=== PATIENT | male | born 1950 | race Caucasian/White ===

== ENCOUNTER 2017-08-14 16:13 | Emergency (ER) | payer MEDICARE ==
[~2017-08-14] VITALS: Ht 180.3 cm; Wt 68.2 kg
[2017-08-14 16:17] VITALS: Ht 180.3 cm; Wt 68.2 kg
[2017-08-14] MEDS ORDERED: ARICEPT10 MG PO (16:20)
[2017-08-14 18:48] VITALS: BP 125/80
[2017-08-24 14:13] VITALS: Ht 180.3 cm; Wt 68.2 kg
== END 2017-08-14 17:10 | disposition other institution (70) ==
LOC: D.ER 16:13
DX: F03.90 Unspecified dementia, unspecified severity, without behavioral disturbance, psychotic disturbance, mood disturbance, and anxiety (principal); M19.011 Primary osteoarthritis, right shoulder; M25.511 Pain in right shoulder

== ENCOUNTER 2017-08-23 13:45 | Inpatient (IN) | payer MEDICARE ==
[~2017-08-23] VITALS: Ht 177.8 cm; Wt 69.5 kg
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
--- NOTE | ~2017-08-23 | PN ---
PATIENT:ASHLEY CHANDLER MEDICAL RECORD: [id number] LOCATION:TASHA Emmanuel112 ADMISSION DATE: 08/23/17 PROGRESS NOTE DATE OF SERVICE: 09/01/2017 SUBJECTIVE: The patient's case was discussed with staff. He has no new complaint. OBJECTIVE: The patient is in good behavioral control with limited insight about his condition. He tolerates his medicines well. ASSESSMENT: No change in diagnoses. PLAN: Supportive and educational interventions were made. Retirement prognosis is guarded. I anticipate the patient can be transitioned out of the hospital soon if this level of improvement is maintained. TRANSINT:[id number] Voice Confirmation ID: [id number] DOCUMENT ID: [id number] JOHN SMITH MD at 0949 CC: [id number] DICTATION DATE: 09/01/17 1221 METAL PATTERNMAKER: 09/01/17 1227 ADM IN [place] [place] [address]
--- NOTE | ~2017-08-23 | PN ---
PATIENT:ASHLEY CHANDLER MEDICAL RECORD: [id number] LOCATION:TASHA FreedmanJovanyLc ADMISSION DATE: 08/23/17 PROGRESS NOTE DATE OF SERVICE: 08/25/2017 SUBJECTIVE: The patient's case was discussed with staff. He has no new complaint. OBJECTIVE: The patient is extremely confused. He is wandering and becomes a little agitated when redirected, but not in a severe way. He is not eating very well. ASSESSMENT: No change in diagnoses. PLAN: The patient will be taken off of Ritalin, since I am concerned about its appetite suppressing effects, especially in someone who is in the end stages of dementia. I also anticipate further tapering him off of Ambien. He may well require some Megace to assist with appetite stimulation and it is clear he needs 93-gjdr-r-day testing. I had ordered neuropsychological testing, but he was too advanced to even be tested by Dr. Bridges. TRANSINT:[id number] Voice Confirmation ID: [id number] DOCUMENT ID: [id number] JOHN SMITH MD at 0956 CC: [id number] DICTATION DATE: 08/25/17 1324 JUNIOR ANALYST: 08/25/17 1339 ADM IN [facility] [address] [place] [address]
--- NOTE | ~2017-08-23 | PN ---
PATIENT:ASHLEY CHANDLER MEDICAL RECORD: [id number] LOCATION:MARCUSLorraine Emmanuel112 ADMISSION DATE: 08/23/17 PROGRESS NOTE DATE OF SERVICE: 09/06/2017 SUBJECTIVE: The patient's case was discussed with staff. He has no new complaint. OBJECTIVE: The patient is in good behavioral control with limited insight about his condition. He tolerates his medicines well. ASSESSMENT: No change in diagnosis. PLAN: Current medicines have been reviewed and will be maintained. Long-term prognosis is guarded. The patient is going to be transitioned out of the hospital into the [facility] tomorrow morning. Follow up will be with the [facility] physician. TRANSINT:[id number] Voice Confirmation ID: [id number] DOCUMENT ID: [id number] JOHN SMITH MD at 1438 CC: [id number] DICTATION DATE: 09/06/17 1356 TRANSPORTATION PROGRAM DIRECTOR: 09/06/17 1415 DIS IN 09/07/17 [address] [place] [address]
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
--- NOTE | ~2017-08-23 | PN ---
PATIENT:ASHLEY CHANDLER MEDICAL RECORD: [id number] LOCATION:TASHA Emmanuel112 ADMISSION DATE: 08/23/17 PROGRESS NOTE DATE OF SERVICE: 08/24/2017 SUBJECTIVE: The patient's case was discussed with staff. He has no new complaint. OBJECTIVE: The patient denies intent to harm himself or others. He is very disorganized. He required p.r.n. medication last night because of some agitation, but he has no recollection of this event. ASSESSMENT: No change in diagnoses. PLAN: The patient will be maintained on current medicines, which I have reviewed. I am going to reduce the dose of the Ritalin to half of what it currently is and anticipate that I will just discontinue it altogether in the next day or two. TRANSINT:[id number] Voice Confirmation ID: [id number] DOCUMENT ID: [id number] JOHN SMITH MD at 1312 CC: [id number] DICTATION DATE: 08/24/17 1400 SERVICE CAR OPERATOR: 08/24/17 1509 ADM IN [id number] [place] [address]
--- NOTE | ~2017-08-23 | PN ---
PATIENT:ASHLEY CHANDLER MEDICAL RECORD: [id number] LOCATION:MARCUSLorraine EmmanuelLc ADMISSION DATE: 08/23/17 PROGRESS NOTE DATE OF SERVICE: 09/04/2017 SUBJECTIVE: The patient's case was discussed with staff. He has no new complaint. OBJECTIVE: The patient is in good behavioral control with limited insight about his condition. He has severe memory impairment. He was agitated last night. ASSESSMENT: No change in diagnoses. PLAN: Supportive and educational interventions were made. The patient will be given a higher dose of trazodone to assist with sleep consolidation. His long-term prognosis is guarded. TRANSINT:[id number] Voice Confirmation ID: [id number] DOCUMENT ID: [id number] JOHN SMITH MD at 1452 CC: [id number] DICTATION DATE: 09/04/17 1454 LUGGER: 09/04/17 1533 ADM IN [place] [id number] [place] [id number]
--- NOTE | ~2017-08-23 | PN ---
PATIENT:ASHLEY CHANDLER MEDICAL RECORD: [id number] LOCATION:TASHA EmmanuelLc ADMISSION DATE: 08/23/17 PROGRESS NOTE DATE OF SERVICE: 08/30/2017 SUBJECTIVE: The patient's case was discussed with staff. He has no new complaint. OBJECTIVE: The patient has been in good behavioral control with no thoughts of harming himself or others. He generally tolerates his medicines well. He did not sleep well last night but has no complaint about this. He does not look sleepy today. I will increase his trazodone to 50 mg at bedtime. TRANSINT:[id number] Voice Confirmation ID: [id number] DOCUMENT ID: [id number] JOHN SMITH MD at 1224 CC: [id number] DICTATION DATE: 08/30/17 1043 SHAREPOINT NET DEVELOPER: 08/30/17 1139 ADM IN [facility] [address] [place] [address]
--- NOTE | ~2017-08-23 | PN ---
PATIENT:ASHLEY CHANDLER MEDICAL RECORD: [id number] LOCATION:TASHA Emmanuel112 ADMISSION DATE: 08/23/17 PROGRESS NOTE DATE OF SERVICE: 08/31/2017 SUBJECTIVE: The patient's case was discussed with staff. He has no new complaint. OBJECTIVE: The patient was agitated and aggressive with staff last night. He did require p.r.n. medication because of this. Today, he has no recollection of the event. He is calm and cooperative today, but severely impaired cognitively. ASSESSMENT: No change in diagnoses. PLAN: Supportive and educational interventions were made. Long-term prognosis is guarded. TRANSINT:[id number] Voice Confirmation ID: [id number] DOCUMENT ID: [id number] JOHN SMITH MD at 1212 CC: [id number] DICTATION DATE: 08/31/17 1235 CLASSICS TEACHER: 08/31/17 1247 ADM IN [facility] [address] [place] [address]
--- NOTE | ~2017-08-23 | PN ---
PATIENT:ASHLEY CHANDLER MEDICAL RECORD: [id number] LOCATION:TASHA Emmanuel112 ADMISSION DATE: 08/23/17 PROGRESS NOTE DATE OF SERVICE: 08/26/2017 SUBJECTIVE: The patient's case was discussed with staff. He has no new complaint. OBJECTIVE: The patient did require some p.r.n. medication last evening because of some agitation. He is a little sleepy today. He is severely impaired cognitively and clearly is going to require 53-gqdh-l-day supervision. He has had no hallucinations today. ASSESSMENT: No change in diagnoses. PLAN: Supportive and educational interventions were made. Fpc prognosis is guarded. TRANSINT:[id number] Voice Confirmation ID: [id number] DOCUMENT ID: [id number] JOHN SMITH MD at 1417 CC: [id number] DICTATION DATE: 08/26/17 1017 FEED PROJECT ENGINEER: 08/26/17 1217 ADM IN [place] [place] [address]
--- NOTE | ~2017-08-23 | PN ---
PATIENT:ASHLEY CHANDLER MEDICAL RECORD: [id number] LOCATION:TASHA Emmanuel112 ADMISSION DATE: 08/23/17 PROGRESS NOTE DATE OF SERVICE: 08/29/2017 SUBJECTIVE: The patient's case was discussed with staff. He has no new complaint. OBJECTIVE: The patient is in good behavioral control with limited insight about his condition. He does tolerate his medicines well. He is severely impaired cognitively, but is responding reasonably well to the structured environment with regular and predictable schedule. ASSESSMENT: No change in diagnoses. PLAN: This patient's condition is advanced. Given his relative youth and the severity of his dementia, it is not a very optimistic prognosis. I suspect that within a year, he will not recognize family members and probably will not even know his own name. His has decided to seek placement at the [facility] instead of assisted living and I am supportive of this decision. TRANSINT:[id number] Voice Confirmation ID: [id number] DOCUMENT ID: [id number] JOHN SMITH MD at 1037 CC: [id number] DICTATION DATE: 08/29/17 1507 MEASUREMENT ADVISOR: 08/29/17 1524 ADM IN [facility] [address] [place] [address]
--- NOTE | ~2017-08-23 | PN ---
PATIENT:ASHLEY CHANDLER MEDICAL RECORD: [id number] LOCATION:TASHA Emmanuel112 ADMISSION DATE: 08/23/17 PROGRESS NOTE DATE OF SERVICE: 09/05/2017 SUBJECTIVE: The patient's case was discussed with staff. He has no new complaint. OBJECTIVE: The patient denies intent to harm himself or others. He generally tolerates his medicines well. Eye contact is fair. ASSESSMENT: No change in diagnoses. PLAN: Current medicines have been reviewed and will be maintained. Long-term prognosis is guarded. TRANSINT:[id number] Voice Confirmation ID: [id number] DOCUMENT ID: [id number] JOHN SMITH MD at 1339 CC: [id number] DICTATION DATE: 09/05/17 1500 WIRE SAW OPERATOR: 09/05/17 1508 ADM IN [place] [address] [place] [address]
--- NOTE | ~2017-08-23 | PN ---
PATIENT:ASHLEY CHANDLER MEDICAL RECORD: [id number] LOCATION:MARCUSLorraine Emmanuel112 ADMISSION DATE: 08/23/17 PROGRESS NOTE DATE OF SERVICE: 09/02/2017 SUBJECTIVE: The patient's case was discussed with staff. He has no new complaint. OBJECTIVE: The patient is sleeping and eating well. He is quite confused, but has not been agitated or aggressive. ASSESSMENT: No change in diagnoses. PLAN: I anticipate the patient can be transitioned out of the hospital soon if this level of improvement is maintained. His long-term prognosis is guarded. TRANSINT:[id number] Voice Confirmation ID: [id number] DOCUMENT ID: [id number] JOHN SMITH MD at 1445 CC: [id number] DICTATION DATE: 09/02/17 0955 PLUG SORTER: 09/02/17 1055 ADM IN [place] [place] [address]
--- NOTE | ~2017-08-23 | PN ---
PATIENT:ASHLEY CHANDLER MEDICAL RECORD: [id number] LOCATION:MARCUSLorraine EmmanuelLc ADMISSION DATE: 08/23/17 PROGRESS NOTE DATE OF SERVICE: 08/28/2017 SUBJECTIVE: The patient's case was discussed with staff. He has no new complaint. OBJECTIVE: The patient has not been aggressive, but he is severely impaired cognitively. He is not sleeping well. He picks at the air as though there is something there, but when asked about it, he cannot answer what he is doing. He has been urinating in the floor, I presume thinking he was in the bathroom. ASSESSMENT: No change in diagnoses. PLAN: The patient will be treated with a low dose of Trilafon to assist with his thought disorganization. He will be monitored for clinical changes associated with its use. His long-term prognosis is guarded. TRANSINT:[id number] Voice Confirmation ID: [id number] DOCUMENT ID: [id number] JOHN SMITH MD at 1456 CC: [id number] DICTATION DATE: 08/28/17 1429 REPAIRER GENERAL: 08/28/17 1507 ADM IN [place] [place] [address]
[~2017-08-23 13:45] MED LIST: ARICEPT10 MG PO
[2017-08-23] MEDS ORDERED: NAMENDA10 MG PO (14:33)
[2017-08-23] MEDS ORDERED: RITALIN10 MG PO (14:33)
[2017-08-23] MEDS ORDERED: AMBIEN10 MG PO (14:34)
[2017-08-23] MEDS ORDERED: FLOMAX0.4 MG PO (14:34)
[2017-08-23 15:18] LABS: BASOPHILS 0.1 % (0-2); EOSINOPHILS 0.5 % (0-7); HEMATOCRIT 45.6 % (42.0-54.0); IMMATURE GRANULOCYTES 0.1 % (0-5); LYMPHOCYTES 12.9 % (15-50); MCH 30.1 pg (26.0-34.0); MCHC 35.1 g/dL (31.0-37.0); MCV 85.9 fL (80.0-100.0); MEAN PLATELET VOLUME 9.5 fL (7.4-10.4); MONOCYTES 9.4 % (2-11); PLATELET COUNT 215 10x3/uL (130-400); RBC 5.31 10x6/uL (4.20-6.10); RDW 12.7 % (11.5-14.5); WBC 7.5 10x3/uL (4.8-10.8)
[2017-08-23 15:40] LABS: ALBUMIN 3.9 g/dL (3.4-5.0); ANION GAP 7.9 mmol/L (8-16); BILIRUBIN - TOTAL 1.03 mg/dL (0.2-1.3); CALCIUM 9.2 mg/dL (8.5-10.1); CARBON DIOXIDE 32.2 mmol/L (21.0-32.0); CHOL - HDL RATIO 2.9 ratio (2.3-4.9); CREATININE - SERUM 1.2 mg/dL (0.6-1.3); LDL-HDL RATIO 1.7 ratio (1.5-3.5); POTASSIUM - SERUM 4.1 mmol/L (3.5-5.1); PROTEIN - SERUM 7.1 g/dL (6.4-8.2); THYROID STIMULATING HORMONE 0.77 uIU/mL (0.36-3.74)
[2017-08-23 18:30] LABS: APPEARANCE CLEAR (CLEAR); BILIRUBIN NEGATIVE (NEGATIVE); COLOR YELLOW (YELLOW); GLUCOSE NEGATIVE (NEGATIVE); KETONE NEGATIVE (NEGATIVE); NITRITE NEGATIVE (NEGATIVE); PROTEIN NEGATIVE (NEGATIVE); SPECIFIC GRAVITY 1.025 (1.005-1.020); UROBILINOGEN NORMAL (NORMAL)
[2017-08-23 19:51] VITALS: BP 124/81
[2017-08-24 02:58] VITALS: BP 104/60; BMI 22.0
[2017-08-24 06:15] LABS: RAPID PLASMA REAGIN Non Reactive (Non Reactive)
[2017-08-24 09:18] LABS: FOLATE (FOLIC ACID) - SERUM 14.2 ng/mL (>3.0)
[2017-08-24 10:20] LABS: VITAMIN D 25 HYDROXY 24.4 ng/mL (30.0-100.0)
[2017-08-24 10:30] VITALS: BP 106/86
[2017-08-24 13:13] VITALS: BMI 21.9
[2017-08-24 14:13] VITALS: Ht 177.8 cm; Wt 69.5 kg
[2017-08-24 20:07] VITALS: BP 127/83
[2017-08-25 09:18] VITALS: BP 137/35
[2017-08-25 09:38] VITALS: BP 137/85
[2017-08-25 19:43] VITALS: BP 133/92
[2017-08-26 10:42] VITALS: BP 120/69
[2017-08-26 20:16] VITALS: BP 136/74
[2017-08-27 08:27] VITALS: BP 127/85
[2017-08-27 19:26] VITALS: BP 108/79
[2017-08-28 07:00] VITALS: BP 132/79
[2017-08-28 19:56] VITALS: BP 115/74
[2017-08-29 07:56] VITALS: BP 100/68
[2017-08-29 19:55] VITALS: BP 126/61
[2017-08-30 09:28] VITALS: BP 105/52
[2017-08-30 19:33] VITALS: BP 126/76
[2017-08-31 08:30] VITALS: BP 111/73
[2017-09-01 08:30] VITALS: BP 119/74
[2017-09-01 20:02] VITALS: BP 108/70
[2017-09-02 08:16] VITALS: BP 91/59
[2017-09-02 10:19] VITALS: BP 91/59
[2017-09-02 19:58] VITALS: BP 150/84
[2017-09-03 07:00] VITALS: BP 107/74
[2017-09-03 20:26] VITALS: BP 147/90
[2017-09-04 07:00] VITALS: BP 122/72
[2017-09-04 19:58] VITALS: BP 110/70
[2017-09-05 10:03] VITALS: BP 104/73
[2017-09-06 08:00] VITALS: BP 104/73
[2017-09-06] MEDS ORDERED: ARICEPT10 MG PO (13:54)
[2017-09-06] MEDS ORDERED: PERPHENAZINE2 MG PO (13:55)
[2017-09-06] MEDS ORDERED: DESERYL100 MG PO (13:55)
[2017-09-06 20:00] VITALS: BP 132/72
[2017-09-07 09:39] VITALS: BP 109/78
== END 2017-09-07 11:30 | DRG 57 ==
LOC: D.PSYCH 13:45
PROVIDERS: Psychiatry & Neurology Psychiatry
DX: G30.1 Alzheimer's disease with late onset (principal); F02.81 Dementia in other diseases classified elsewhere, unspecified severity, with behavioral disturbance; N40.0 Benign prostatic hyperplasia without lower urinary tract symptoms; M19.011 Primary osteoarthritis, right shoulder; G47.00 Insomnia, unspecified; E55.9 Vitamin D deficiency, unspecified

== ENCOUNTER 2017-12-14 17:44 | Inpatient (IN) | payer MEDICARE, BC ==
[~2017-12-14] VITALS: Ht 177.8 cm; Wt 90.7 kg
--- NOTE | ~2017-12-14 | PN ---
PATIENT:ASHLEY CHANDLER MEDICAL RECORD: [id number] LOCATION:TASHA FreedmanJovany112 ADMISSION DATE: 12/14/17 PROGRESS NOTE DATE OF SERVICE: 12/20/2017 SUBJECTIVE: The patient's case was discussed with staff. He has no new complaint. OBJECTIVE: The patient continues to be agitated and disruptive. He has been aggressive with staff. ASSESSMENT: No change in diagnoses. PLAN: I think that much of the patient's agitation is related to the fact that he cannot process the events in his environment cognitively. He becomes upset and agitated. Based on this, I am going to try to help him with his anxiety by prescribing Klonopin at a dose of 1 mg twice daily. Monitor him for sedation, but I do think that his prognosis is exceedingly poor and that the reasons for his agitation are described above. TRANSINT:[id number] Voice Confirmation ID: [id number] DOCUMENT ID: [id number] JOHN SMITH MD at 1026 CC: [id number] DICTATION DATE: 12/20/17 112 GREASE CUP FILLER: 12/20/[address] [facility] [address] [place] [address]
--- NOTE | ~2017-12-14 | PN ---
PATIENT:ASHLEY CHANDLER MEDICAL RECORD: [id number] LOCATION:MARCUSLorraine EmmanuelLc ADMISSION DATE: 12/14/17 PROGRESS NOTE DATE OF SERVICE: 12/25/2017 SUBJECTIVE: The patient's case was discussed with staff. He has no new complaint. OBJECTIVE: The patient is relatively stable from aggression standpoint. There is still some moderate aggressive behavior with personal care, but otherwise he is significantly calmed without being excessively sedated. He is oriented only to person and only able to answer very basic questions. On occasion, he can follow simple commands. He is still not eating or drinking adequately. I am going to check some baseline labs to see if he is in any metabolic difficulty. ASSESSMENT: No change in diagnoses. PLAN: Current medicines will be maintained. His long-term prognosis is guarded. TRANSINT:[id number] Voice Confirmation ID: [id number] DOCUMENT ID: [id number] JOHN SMITH MD at 0924 CC: [id number] DICTATION DATE: 12/25/17 1033 CITY BUS DRIVER: 12/25/17 1116 ADM IN [facility] [address] [place] [address]
--- NOTE | ~2017-12-14 | PN ---
PATIENT:ASHLEY CHANDLER MEDICAL RECORD: [id number] LOCATION:TASHA Emmanuel112 ADMISSION DATE: 12/14/17 PROGRESS NOTE DATE OF SERVICE: 12/23/2017 SUBJECTIVE: The patient's case was discussed with staff. He has no new complaint. OBJECTIVE: The patient is in good behavioral control with limited insight about his condition. He does tolerate his medicines well. ASSESSMENT: No change in diagnoses. PLAN: Brief supportive and educational interventions were made. Long-term prognosis is guarded. His behaviors are better, but he is still not eating. His prognosis is exceedingly poor. TRANSINT:[id number] Voice Confirmation ID: [id number] DOCUMENT ID: [id number] JOHN SMITH MD at 1241 CC: [id number] DICTATION DATE: 12/23/17 1434 STRATEGIC PROCUREMENT MANAGER: 12/23/17 1500 ADM IN [facility] [address] [place] [id number]
--- NOTE | ~2017-12-14 | PN ---
PATIENT:ASHLEY CHANDLER MEDICAL RECORD: [id number] LOCATION:TASHA Emmanuel112 ADMISSION DATE: 12/14/17 PROGRESS NOTE DATE OF SERVICE: 12/21/2017 SUBJECTIVE: The patient's case was discussed with staff. He has no new complaint. OBJECTIVE: The patient is a little calmer today. It may be related to the increase in his Klonopin I started yesterday. Overall, his prognosis is very poor. He is only oriented to person and cannot be easily redirected. He is having difficulty understanding even very basic instructions. ASSESSMENT: No change in diagnoses. PLAN: Current medicines have been reviewed and will be maintained. Long-term prognosis is guarded. TRANSINT:[id number] Voice Confirmation ID: [id number] DOCUMENT ID: [id number] JOHN SMITH MD at 1212 CC: [id number] DICTATION DATE: 12/21/17 1047 RUBBER TIRE CURER: 12/21/17 1103 ADM IN [place] [id number] [place] [address]
--- NOTE | ~2017-12-14 | PN ---
PATIENT:ASHLEY CHANDLER MEDICAL RECORD: [id number] LOCATION:TASHA Emmanuel112 ADMISSION DATE: 12/14/17 PROGRESS NOTE DATE OF SERVICE: 12/24/2017 SUBJECTIVE: The patient's case was discussed with staff. He has no new complaint. OBJECTIVE: The patient continues to have a very poor oral intake. He has limited insight about his condition. ASSESSMENT: No change in diagnoses. PLAN: Current medicines and therapies have been reviewed and will be maintained. Long-term prognosis is guarded. TRANSINT:[id number] Voice Confirmation ID: [id number] DOCUMENT ID: [id number] JOHN SMITH MD at 0930 CC: [id number] DICTATION DATE: 12/24/17 1248 CLOTHING PATTERNMAKER: 12/24/17 1449 ADM IN [place] [address] [place] [address]
--- NOTE | ~2017-12-14 | PN ---
PATIENT:ASHLEY CHANDLER MEDICAL RECORD: [id number] LOCATION:TASHA Emmanuel112 ADMISSION DATE: 12/14/17 PROGRESS NOTE DATE OF SERVICE: 12/19/2017 SUBJECTIVE: The patient's case was discussed with staff. He has no new complaint. OBJECTIVE: The patient is in good behavioral control. He has poor insight about his situation. He is severely impaired cognitively. He is not eating very well. Efforts are being made to assist him. TRANSINT:[id number] Voice Confirmation ID: [id number] DOCUMENT ID: [id number] JOHN SMITH MD at 0922 CC: [id number] DICTATION DATE: 12/19/17 1242 VISUAL MERCHANDISING SPECIALIST: 12/19/17 1247 ADM IN [place] [address] [place] [address]
--- NOTE | ~2017-12-14 | PSY ---
PATIENT NAME:ASHLEY CHANDLER MEDICAL RECORD: [id number] : 54 LOCATION:[facility] ADMISSION DATE: 12/14/17 ACCOUNT: [id number] PSYCHIATRIC EVALUATION DATE OF EVALUATION: 12/15/17 IDENTIFYING DATA: The patient is 67 years old and he was admitted to the hospital on a voluntary basis. CHIEF COMPLAINT: Aggression. HISTORY OF PRESENT ILLNESS: The patient lives in a local shelter. They referred him to us for treatment because he has been combative and agitated. The patient has no recollection of this. He was here about 3 months ago and at that time, he was found to have a very advanced dementia. Unfortunately, he seems to have dramatically declined just in the past 3 months. While he was able to carry on a conversation with me in July, he is not able to do so now. He is only oriented to person, can follow very simple directions, and when asked anything other than a yes or no question, he is unable to formulate an answer. PAST MEDICAL HISTORY: Significant for osteoarthritis. PAST PSYCHIATRIC HISTORY: Significant for 1 previous psychiatric hospitalization and an established diagnosis of dementia. FAMILY HISTORY: Noncontributory. ALLERGIES: No known drug allergies. CURRENT MEDICATIONS: Include Colace, calcium, multiple vitamins, Aricept, melatonin, Dulcolax, trazodone, Trilafon, Namenda. SOCIAL HISTORY: The patient is a retired military lawyer. He is and has children. He has no history of drug or alcohol abuse. He has no history of legal entanglements and he functioned very well in the community. MENTAL STATUS EXAMINATION: The patient is awake, alert and oriented to person only. His mood is anxious. His affect is constricted. Memory, concentration, and abstraction abilities are severely impaired and he is not answering questions about wanting to harm himself or others or psychotic symptoms. ASSETS: Supportive family members. LIABILITIES: Limited insight. DIAGNOSTIC IMPRESSION: AXIS I: Senile dementia of the Alzheimer's type with behavioral disturbances. AXIS II: None. AXIS III: Osteoarthritis. AXIS IV: Moderate stressors. AXIS V: Global assessment of functioning is 20. PLAN: At this time, the patient is admitted to the hospital secondary to aggressive behavior associated with an advanced dementia. He will be evaluated from both a medical, psychological, and social standpoint. I believe the goal of treatment will to make him calmer, more relaxed and certainly more manageable in a shelter setting. Unfortunately, this traumatic loss and abilities in just 3 months indicates an unusually poor long-term prognosis. TRANSINT:[id number] Voice Confirmation ID: [id number] DOCUMENT ID: [id number] JOHN SMITH MD at 0926 CC: [id number] DICTATION DATE: 12/15/17 1056 MANAGER FINANCIAL SERVICES: 12/15/17 1110 ADM IN [place] [id number] [place] [id number]
--- NOTE | ~2017-12-14 | PN ---
PATIENT:ASHLEY CHANDLER MEDICAL RECORD: [id number] LOCATION:[facility]112 ADMISSION DATE: 12/14/17 PROGRESS NOTE DATE OF SERVICE: 12/26/2017 SUBJECTIVE: The patient's case was discussed with staff. He has no new complaint. OBJECTIVE: The patient is in good behavioral control, but severely confused. He has very limited insight about his condition. He is slightly dehydrated with a BUN of 31. He shows no evidence of infection. ASSESSMENT: No change in diagnoses. PLAN: The patient will be transitioned out of the hospital tomorrow. He will have follow up with the senior care and will be placed on hospice. TRANSINT:[id number] Voice Confirmation ID: [id number] DOCUMENT ID: [id number] JOHN SMITH MD at 1641 CC: [id number] DICTATION DATE: 12/26/17 0948 JUNIOR LINUX ADMINISTRATOR: 12/26/17 1005 DIS IN 12/27/17 [place] [id number] [place] [address]
--- NOTE | ~2017-12-14 | PN ---
PATIENT:ASHLEY CHANDLER MEDICAL RECORD: [id number] LOCATION:[facility]112 ADMISSION DATE: 12/14/17 PROGRESS NOTE DATE OF SERVICE: 12/17/2017 SUBJECTIVE: The patient's case was discussed with staff. He has no new complaint. OBJECTIVE: The patient is very disorganized. He has required multiple doses of p.r.n. medication because of his agitation. He is difficult to redirect. ASSESSMENT: No change in diagnoses. PLAN: The patient will be given Geodon at a dose of 20 mg twice daily to assist with his disorganized behaviors. His long-term prognosis is guarded. TRANSINT:[id number] Voice Confirmation ID: [id number] DOCUMENT ID: [id number] JOHN SMITH MD at 1417 CC: [id number] DICTATION DATE: 12/17/17 1113 WELDING SPECIALIST: 12/17/17 1253 ADM IN [facility] [address] [place] [address]
--- NOTE | ~2017-12-14 | PN ---
PATIENT:ASHLEY CHANDLER MEDICAL RECORD: [id number] LOCATION:[facility] ADMISSION DATE: 12/14/17 PROGRESS NOTE DATE OF SERVICE: 12/14/2017 SUBJECTIVE: The patient's case was discussed with staff. He has no new complaint. OBJECTIVE: The patient is in good behavioral control. He has poor insight about his condition. He generally tolerates his medicines well. Eye contact is fair. ASSESSMENT: No change in diagnoses. PLAN: The patient is severely impaired cognitively. He has dramatically declined since he was here 3 months ago. This is clearly disease progression, but it is progressing at a rapid pace. TRANSINT:[id number] Voice Confirmation ID: [id number] DOCUMENT ID: [id number] JOHN SMITH MD at 1054 CC: [id number] DICTATION DATE: 12/16/17 0942 PEER FINANCIAL COUNSELOR: 12/16/[address] [facility] [address] [place] [address]
--- NOTE | ~2017-12-14 | PN ---
PATIENT:ASHLEY CHANDLER MEDICAL RECORD: [id number] LOCATION:[facility] ADMISSION DATE: 12/14/17 PROGRESS NOTE DATE OF SERVICE: 12/18/2017 SUBJECTIVE: The patient's case was discussed with staff. OBJECTIVE: The patient is oriented only to person. His mood is anxious. His affect is constricted. Thought processes are very disorganized. He has been given a larger dose of Geodon starting yesterday. I do not think it has had a chance to become effective. He is a little calmer perhaps, but he still is significantly disruptive, and in fact, he had to be on p.r.n. this morning because of agitation. ASSESSMENT: No change in diagnoses. PLAN: The patient will be maintained on current medicines, which I have reviewed. His long-term prognosis is guarded. TRANSINT:[id number] Voice Confirmation ID: [id number] DOCUMENT ID: [id number] JOHN SMTIH MD at 1223 CC: [id number] DICTATION DATE: 12/18/17 1450 PRODUCT HANDLER: 12/18/17 1642 ADM IN [facility] [address] [place] [id number]
--- NOTE | ~2017-12-14 | PN ---
PATIENT:ASHLEY CHANDLER MEDICAL RECORD: [id number] LOCATION:[facility]112 ADMISSION DATE: 12/14/17 PROGRESS NOTE DATE OF SERVICE: 12/22/2017 SUBJECTIVE: The patient's case was discussed with staff. He has no new complaint. OBJECTIVE: The patient is in good behavioral control with limited insight about his condition. He does tolerate his medicines well. He is severely impaired cognitively. ASSESSMENT: No change in diagnoses. PLAN: I anticipate the patient will be transitioned out of the hospital soon. He is going to go to hospice and receive comfort care. TRANSINT:[id number] Voice Confirmation ID: [id number] DOCUMENT ID: [id number] JOHN SMITH MD at 1421 CC: [id number] DICTATION DATE: 12/22/17 1237 BIT GATHERER: 12/22/17 1242 ADM IN [place] [id number] [place] [address]
--- NOTE | ~2017-12-14 | DS ---
PATIENT:ASHLEY CHANDLER :54 MEDICAL RECORD: [id number] DISCHARGE SUMMARY ADMISSION DATE: 12/14/17 DISCHARGE DATE: 12/27/17 IDENTIFYING DATA: The patient is 67 years old and he was admitted to the hospital on a voluntary basis because of aggression. The patient lives in a local skilled nursing. They have referred him to us because he has been combative. He has no recollection of this. The patient has an advanced dementia despite his relative youth at 67 years of age. He was here 3 months ago for aggressive behavior and has dramatically declined since then. He currently is only oriented to person and can follow very simple directions and that is all. HOSPITAL COURSE: The patient was admitted to the hospital and fully evaluated from both medical, psychological, and social standpoint. He was treated with both mood stabilizing and memory enhancing medications. He showed improvement through the course of the hospitalization with regard to his aggressive behaviors, but there was ongoing difficulty with oral intake and medication compliance. The patient is in the very late stages of a dementing process and apparently it is rapidly progressing given the dramatic decline in only 90 days that he is showing. He was subsequently discharged back to the skilled nursing with hospice and comfort care measures. DISCHARGE DIAGNOSES: AXIS I: Senile dementia of the Alzheimer's type with behavioral disturbances. AXIS II: None. AXIS III: Osteoarthritis. AXIS IV: Moderate stressors. AXIS V: Global assessment of functioning is 25. PLAN: At the time of discharge, the patient was not acutely dangerous to himself or others. He is in the final stages of his disease process. He is not eating or drinking adequately despite almost heroic efforts on the part of the nursing staff to assist him in this way. He will be treated with current medications and comfort care and hospice measures will be taken. Unfortunately, his long-term prognosis is exceedingly poor. TRANSINT:[id number] Voice Confirmation ID: [id number] DOCUMENT ID: [id number] JOHN SMITH MD at 0954 CC: [id number] DICTATION DATE: 12/28/17 1307 AUDIT SENIOR ASSOCIATE: 12/28/17 2240 DIS IN 12/27/17 [facility] [address] [place] [address]
[~2017-12-14 17:44] MED LIST changes: +AMBIEN10 MG PO; +DESERYL100 MG PO; +FLOMAX0.4 MG PO; +NAMENDA10 MG PO; +PERPHENAZINE2 MG PO; +RITALIN10 MG PO
[2017-12-14] MEDS ORDERED: CALCIUM 500 +1 EAC3 PO (19:54)
[2017-12-14] MEDS ORDERED: MELATONIN 3 MG1 TAB PO (19:54)
[2017-12-14] MEDS ORDERED: PROMOD LIQUID P30 M1 PO (19:55)
[2017-12-14] MEDS ORDERED: COLACE100 MG PO (19:57)
[2017-12-14] MEDS ORDERED: VITAMIN D31000 UNI2 PO (19:58)
[2017-12-14] MEDS ORDERED: PERPHENAZINE4 MG PO (19:59)
[2017-12-14] MEDS ORDERED: XANAX0.5 MG PO (20:00)
[2017-12-14] MEDS ORDERED: XANAX1 MG PO (20:02)
[2017-12-14] MEDS ORDERED: DESERYL50 M2 PO (20:04)
[2017-12-14] MEDS ORDERED: DULCOLAX10 MG/SUPP RC (20:05)
[2017-12-14] MEDS ORDERED: MILK OF MAGNESI30 ML PO (20:05)
[2017-12-15 00:58] VITALS: BP 117/79; BMI 28.7
[2017-12-15 05:36] LABS: BASOPHILS 0.2 % (0-2); EOSINOPHILS 1.3 % (0-7); HEMATOCRIT 44.5 % (42.0-54.0); HEMOGLOBIN 15.5 g/dL (13.5-17.5); IMMATURE GRANULOCYTES 0.3 % (0-5); LYMPHOCYTES 21.6 % (15-50); MCHC 34.8 g/dL (31.0-37.0); MCV 86.1 fL (80.0-100.0); MEAN PLATELET VOLUME 9.3 fL (7.4-10.4); NEUTROPHILS 66.6 % (40-80); PLATELET COUNT 200 10x3/uL (130-400); RBC 5.17 10x6/uL (4.20-6.10); WBC 6.1 10x3/uL (4.8-10.8)
[2017-12-15 06:02] LABS: ALBUMIN 3.3 g/dL (3.4-5.0); ALKALINE PHOSPHATASE 63 U/L (46-116); ALT (SGPT) 19 U/L (10-68); BILIRUBIN - TOTAL 0.57 mg/dL (0.2-1.3); CALC OSMOLALITY 281 mosm/kg (275-300); CALCIUM 9.2 mg/dL (8.5-10.1); CARBON DIOXIDE 30.7 mmol/L (21.0-32.0); CHLORIDE - SERUM 104 mmol/L (98-107); CHOL - HDL RATIO 3.2 ratio (2.3-4.9); CHOLESTEROL, TOTAL 164 mg/dL (0-200); GLUCOSE 91 mg/dL (74-106); HDL CHOLESTEROL 52 mg/dL (32-96); LDL CHOLESTEROL 93 mg/dL (0-100); LDL-HDL RATIO 1.8 ratio (1.5-3.5); POTASSIUM - SERUM 4.1 mmol/L (3.5-5.1); PROTEIN - SERUM 6.2 g/dL (6.4-8.2); SODIUM 141 mmol/L (136-145); THYROID STIMULATING HORMONE 1.73 uIU/mL (0.36-3.74); TRIGLYCERIDE 95 mg/dL (30-200); UREA NITROGEN 16 mg/dL (7-18); eGFR NON AFRICAN AMERICAN 80 mL/min (90-120)
[2017-12-15 10:05] VITALS: BP 114/70
[2017-12-15 20:10] VITALS: BP 138/88
[2017-12-16 05:13] LABS: RAPID PLASMA REAGIN Non Reactive (Non Reactive)
[2017-12-16 06:15] LABS: VITAMIN D 25 HYDROXY 36.5 ng/mL (30.0-100.0)
[2017-12-16 09:15] VITALS: BP 106/72
[2017-12-16 11:10] LABS: FOLATE (FOLIC ACID) - SERUM 10.2 ng/mL (>3.0)
[2017-12-16 19:32] VITALS: BP 130/78
[2017-12-17 08:00] VITALS: BP 97/64
[2017-12-17 19:54] VITALS: BP 139/85
[2017-12-18 07:00] VITALS: BP 114/81
[2017-12-18 13:53] VITALS: Ht 177.8 cm; Wt 90.7 kg
[2017-12-18 20:21] VITALS: BP 150/87
[2017-12-20 09:47] VITALS: BP 129/89
[2017-12-20 20:34] VITALS: BP 139/73
[2017-12-21 10:40] LABS: APPEARANCE CLEAR (CLEAR); BILIRUBIN NEGATIVE (NEGATIVE); COLOR DK YELLOW (YELLOW); GLUCOSE NEGATIVE (NEGATIVE); KETONE SMALL mg/dL (NEGATIVE); NITRITE NEGATIVE (NEGATIVE); PROTEIN NEGATIVE (NEGATIVE); SPECIFIC GRAVITY 1.025 (1.005-1.020); UROBILINOGEN NORMAL (NORMAL)
[2017-12-21 11:34] VITALS: BP 130/76
[2017-12-21 20:32] VITALS: BP 170/76
[2017-12-22 08:59] VITALS: BP 114/70
[2017-12-22 20:02] VITALS: BP 140/70
[2017-12-23 10:47] VITALS: BP 105/63
[2017-12-23 19:32] VITALS: BP 112/76
[2017-12-24 08:05] VITALS: BP 126/70
[2017-12-24 20:00] VITALS: BP 107/71
[2017-12-25 10:07] VITALS: BP 136/53
[2017-12-25 11:20] LABS: BASOPHILS 0.1 % (0-2); EOSINOPHILS 0.6 % (0-7); HEMATOCRIT 46.3 % (42.0-54.0); LYMPHOCYTES 14.2 % (15-50); MCH 30.2 pg (26.0-34.0); MCHC 34.6 g/dL (31.0-37.0); MCV 87.4 fL (80.0-100.0); MEAN PLATELET VOLUME 9.5 fL (7.4-10.4); MONOCYTES 7.8 % (2-11); NEUTROPHILS 77.3 % (40-80); PLATELET COUNT 201 10x3/uL (130-400); RDW 12.9 % (11.5-14.5); WBC 7.3 10x3/uL (4.8-10.8)
[2017-12-25 11:36] LABS: ALBUMIN 3.7 g/dL (3.4-5.0); ANION GAP 9.1 mmol/L (8-16); BILIRUBIN - TOTAL 0.98 mg/dL (0.2-1.3); CALCIUM 9.3 mg/dL (8.5-10.1); CARBON DIOXIDE 33.7 mmol/L (21.0-32.0); CREATININE - SERUM 1.1 mg/dL (0.6-1.3); POTASSIUM - SERUM 3.8 mmol/L (3.5-5.1); PROTEIN - SERUM 6.9 g/dL (6.4-8.2)
[2017-12-26 09:26] VITALS: BP 108/50
[2017-12-26] MEDS ORDERED: GEODON20 MG PO (09:49)
[2017-12-26] MEDS ORDERED: KLONOPIN1 MG PO (09:49)
[2017-12-26] MEDS ORDERED: ABREVA2 GM TOPICAL (09:50)
[2017-12-26] MEDS ORDERED: SENNA8.6 MG PO (09:50)
[2017-12-26 19:31] VITALS: BP 104/69
[2017-12-27 09:18] VITALS: BP 110/71
== END 2017-12-27 10:58 | DRG 57 ==
LOC: D.NSY 17:44 → D.PSYCH 17:51
PROVIDERS: Psychiatry & Neurology Psychiatry
DX: G30.1 Alzheimer's disease with late onset (principal); F02.81 Dementia in other diseases classified elsewhere, unspecified severity, with behavioral disturbance; M19.90 Unspecified osteoarthritis, unspecified site; G47.00 Insomnia, unspecified; E55.9 Vitamin D deficiency, unspecified; N40.1 Benign prostatic hyperplasia with lower urinary tract symptoms; N39.498 Other specified urinary incontinence; K59.00 Constipation, unspecified; R63.0 Anorexia; B00.1 Herpesviral vesicular dermatitis; Z68.21 Body mass index [BMI] 21.0-21.9, adult